=== PATIENT | male | born 1985 | race Caucasian/White ===

== ENCOUNTER 2018-10-15 23:34 | Emergency (ER) | payer MEDICAID ==
[~2018-10-15] VITALS: Wt 88.4 kg
[2018-10-15 23:37] VITALS: BP 167/76; PULSE 74; RESP 20
[2018-10-16] MEDS ORDERED: BEN25 PO (01:14)
--- NOTE | 2018-10-16 01:21 | ERD ---
ER Documentation Chief Complaint Chief Complaint bib family for hives on upper right torso since last night unknown allergy HPI 33-year-old male with no significant past medical history presenting to the emergency department complaining of hives on his torso which began yesterday. Associated symptoms include pruritus. This started after drinking a blackberry sparkling beverage. He had never had this drink before the past. He took Benadryl at home with some relief. He denies any shortness of breath or feelings of his throat closing. He denies any other symptoms at this time. ROS All systems reviewed and are negative except as per history of present illness. Medications Home Meds Active Scripts Diphenhydramine Hcl* (Benadryl*) 25 Mg Cap, 25 MG PO Q6 PRN for ITCHING/RASH, #30 TAB Prov:JC DOMINIQUE PA-C 10/16/18 Allergies Allergies: Coded Allergies: No Known Allergy (Unverified , 10/15/18) PMhx/Soc Medical and Surgical Hx: pt denies Medical Hx, pt denies Surgical Hx Hx Alcohol Use: Yes (occasional) Hx Substance Use: No Hx Tobacco Use: No Smoking Status: Never smoker FmHx Family History: No diabetes Physical Exam Vitals Vital Signs Date Temp Pulse Resp B/P (MAP) Pulse Ox O2 O2 Flow FiO2 Time Delivery Rate 10/15/18 98.1 74 20 167/76 100 23:37 (106) Physical Exam Const: No acute distress Head: Atraumatic Eyes: Normal Conjunctiva ENT: Normal External Ears, Nose and Mouth. Posterior pharynx is clear. Airway is patent. There is no uvulitis. There is no tongue swelling. No obvious angioedema. Neck: Full range of motion. No meningismus. Resp: Clear to auscultation bilaterally Cardio: Regular rate and rhythm, no murmurs Skin: Macular papular rash with wheals noted on the abdomen and the back. Back: No midline or flank tenderness Ext: No cyanosis, or edema Neur: Awake and alert Psych: Normal Mood and Affect Results 24 hrs Current Medications Medications Dose Sig/Jono Start Time Status Last (Trade) Ordered Route PRN Stop Time Admin Dose Reason Admin 10 mg ONCE ONCE 10/16/18 10/16/18 Dexamethasone IM 01:30 01:11 (Decadron) 10/16/18 01:31 Procedures/MDM 33-year-old male presenting to the emergency department with signs and symptoms most consistent with allergic urticaria. Patient was administered Decadron in the department with good response. Patient's dermatologic symptoms have stabilized while they have been evaluated in the department and are appropriate for outpatient work up. No evidence of Jeremi Олег's syndrome, Kawasaki's, or sepsis. Immunologic Assessment: Patient's allergic symptoms have stabilized while they have been evaluated in the department without evidence of persistent systemic reaction. Patient is healthy and capable of treating and responding to rebound reactions. Patient appropriate for outpatient allergy work up and treatment. No evidence of life-threatening pathology at time of discharge. Pt/family in agreement with discharge plan/diagnosis. Pt/family advised to return immed iately with any new or worsening symptoms. Follow-up with primary care physician within the next 1-2 days. Patient's blood pressure was elevated (>120/80) but appears stable without evidence of hypertension emergency or urgency. The patient is to follow-up and pursue outpatient monitoring and therapy with their primary care physician within 1 week and return immediately if they have any new, worsening, or concerning symptoms. Disclaimer: Inadvertent spelling and grammatical errors are likely due to EHR/ dictation software use and do not reflect on the overall quality of patient care. Also, please note that the electronic time recorded on this note does not necessarily reflect the actual time of the patient encounter. Departure Diagnosis: Primary Impression: Rash and other nonspecific skin eruption Condition: Fair Patient Instructions: Jenelle Ref[facility] Usted se brown hecho un examen mdico de control que le indica que no est en lissy condicin que requiera tratamiento urgente en el Departamento de Emergencia. Un estudio ms profundo y el tratamiento de grayson condicin pueden esperar sin ningn riesgo hasta que usted sea atendida/o en el consultorio de grayson mdico o lissy clnica. Es responsabilidad suya arreglar lissy neil para el seguimiento del julisa. MANEJO DE CONDICIONES NO URGENTES EN EL FUTURO 1) Si usted tiene un mdico de atencin primaria: Usted debera llamar a grayson mdico de atencin primaria antes de venir al departamento de emergencia. Despus de las horas de consultorio, grayson doctor o grayson asociado/a est disponible por telfono. El mdico o enfermero de abigail en el servicio telefnico puede asesorarle por jimmy medio para atender el problema, o julisa contrario se puede programar lissy neil. 2) Si usted no tiene un mdico de atencin primaria: Llame al mdico o clnica de referencia que aparece abajo anastasia las horas de consultorio para hacer lissy neil para que le vean. CLINICAS: [place] [id number] [phone] [facility] [phone] [address] [place] [phone] [place] [id number] [phone] [place] [address] [phone] [facility]. [phone] [address] Additional Instructions: Llame al doctor MAANA y cheko lissy NEIL PARA DENTRO DE 1-2 ANTONIO.Dgale a la secretaria que nosotros le instruimos hacer esta neil.Avise o llame si grayson condicin se empeora antes de la neil. Regresa aqui si peor o no mejor. JC DOMINIQUE PA-C Oct 16, 2018 01:21
[2018-10-16] MEDS ORDERED: DEXAMETHASONE 10 MG/ML 1 ML INJ IM ONE (01:30)
== END 2018-10-16 01:33 | disposition home or self-care (01) ==
LOC: FTE 23:34
DX: L50.0 Allergic urticaria (principal)
CPT/HCPCS: 96372; J1100; Z7502